=== PATIENT | male | born 1980 | race African-American/Black ===

== ENCOUNTER 2020-08-14 12:29 | Emergency (ER) | payer OTHER ==
[~2020-08-14] VITALS: Ht 172.7 cm; Wt 66.2 kg
[~2020-08-14 12:29] MED LIST: CYCLOBENZAPRINE5 MG PO; HYDROCODON-ACE1 EAC7 PO; LIDODERM 5%1 PATCH TOP; NAPROSYN500 MG PO; ULTRAM 50MG TAB50 MG PO
[2020-08-14 12:30] VITALS: BP 102/57
[2020-08-14] MEDS ORDERED: PREDNISONE 20 M20 MG PO (13:52)
== END 2020-08-14 13:52 | disposition home or self-care (01) ==
LOC: ER 12:29
DX: S90.112A Contusion of left great toe without damage to nail, initial encounter (principal); S90.412A Abrasion, left great toe, initial encounter; F17.210 Nicotine dependence, cigarettes, uncomplicated; X50.9XXA Other and unspecified overexertion or strenuous movements or postures, initial encounter; Y93.67 Activity, basketball; Y92.89 Other specified places as the place of occurrence of the external cause; Y99.8 Other external cause status